=== PATIENT | female | born 1960 | race Caucasian/White ===

== ENCOUNTER → 2018-02-10 | Outpatient (CLI) | payer OTHER ==
--- NOTE | 2018-02-10 13:24 | RADIOLOGY REPORT (SQ) ---
EXAM DESCRIPTION: MRI LT LOWER JOINT WITHOUT COMPLETED DATE/TIME: 02/10/2018 12:49 pm REASON FOR STUDY: M25.562 PAIN IN LEFT KNEE M25.562 PAIN IN LEFT KNEE COMPARISON: Plain radiographs TECHNIQUE: Leftknee images acquired and stored on PACS. Multiplanar images include fat sensitive se quences as T1, water sensitive sequences as FST2 or STIR, cartilage sensitive sequences as FSPD, and gradient echo sequences. LIMITATIONS: None. FINDINGS: JOINT AND BURSAE: Joint effusion. No popliteal cyst. BONE CORTEX AND MARROW: No alteration of signal to suggest marrow replacement. No worrisome bone lesi ons. No occult fracture. ACL: Intact. No degeneration or ganglion cyst. PCL: Intact. MCL: Intact. No periligamentous edema or fluid. LCL: Intact. No periligamentous edema or fluid. MEDIAL MENISCUS: No tears. No abnormal signal. LATERAL MENISCUS: No tears. No abnormal signal. MEDIAL COMPARTMENT: Cartilage preserved. No bone bruises or reactive marrow edema. No osteophytes. LATERAL COMPARTMENT: Cartilage preserved. No bone bruises or reactive marrow edema. No osteophytes. 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 Trochlear cartilage intact. EXTENSOR MECHANISM: Intact. Quadriceps and patella tendons normal. SOFT TISSUES: Adjacent muscles and subcutaneous tissues normal. Normal flow void in popliteal artery and vein. OTHER: No other significant finding. IMPRESSION: Patellar chondromalacia with subchondral cysts. Joint effusion. TECHNICAL DOCUMENTATION: JOB ID: [id number] [employer]- All Rights Reserved Reading location - IP/workstation name: [email or web address]
== END ==
LOC: RAD 13:21
PROVIDERS: ATTEND Orthopaedic Surgery
DX: M25.562 Pain in left knee (principal); M22.42 Chondromalacia patellae, left knee; M25.462 Effusion, left knee

== ENCOUNTER 2018-04-09 06:58 | Day surgery (SDC) | payer OTHER ==
[2018-04-09] MEDS ORDERED: ONDANSETRON HCL INJ/PF 4 MG/2 ML SDV ONE (07:45)
[2018-04-09] MEDS ORDERED: DIPHENHYDRAMINE HCL 50 MG/ML VIAL ONE (07:45)
[2018-04-09] MEDS ORDERED: NALOXONE HCL INJ/PF 0.4 MG/1 ML SDV ONE (07:45)
[2018-04-09] MEDS ORDERED: FLUMAZENIL INJ 0.5 MG/5 ML VIAL ONE (07:46)
[2018-04-09] MEDS ORDERED: GLUCAGON,HUMAN RECOMB 1 MG INJ ONE (07:46)
[2018-04-09] MEDS ORDERED: EPINEPHRINE INJ 1 MG/10 ML DISP.SYRIN ONE (07:46)
[2018-04-09] MEDS: MIDAZOLAM 2 MG/2 ML INJ ONE ×6 (08:29→08:57)
[2018-04-09] MEDS: FENTANYL CITRATE INJ/PF 100 MCG/2 ML AMPUL ONE ×5 (08:31→09:00)
--- NOTE | 2018-04-09 09:08 | Discharge Summary ---
Discharge Summary (SDC) - Discharge Final Diagnosis: Personal history of colon polyp; incomplete colonoscopy Date of Surgery: 04/09/18 Discharge Date: 04/09/18 Condition: Good Treatment or Instructions: [place] [id number] POST ENDOSCOPY DISCHARGE INSTRUCTIONS 1. Diet: Start clear liquids that a regular diet as tolerated. 2. Resume all preoperative medications. All oral anticoagulants and aspirins can be resumed 24 hours after procedure. 3. If a polypectomy was performed some bleeding per rectum may occur. This should stop within 3 days. If not, please contact the office. 4. If you had a colonoscopy you may experience some bloating and delayed return of normal bowel function for several days, your regular bowel movement pattern should resume within a week. 5. Please contact [facility] at to make an appointment with Dr. Linares for 1 to 3 weeks following procedure. 6. If you have any questions or concerns regarding your care,treatment plan or follow up, please contact our office. 7. This was an incomplete colonoscopy; therefore we will either for the patient air-contrast barium enema, or repeat colonoscopy under LMAC anesthesia Referrals: NANIC MAN MD [Primary Care Provider] - Discharge Diet: As Tolerated Discharge Activity: Activity As Tolerated Home Care Assistance: None Needed Report the Following to Your Physician Immediately: Shortness of Breath, Increase in Pain, Fever over 101 Degrees
--- NOTE | 2018-04-09 09:11 | Operative Report ---
Operative Report DATE OF SURGERY: 04/09/18 PREOPERATIVE DIAGNOSIS: 1. Personal history of colon polyp POSTOPERATIVE DIAGNOSIS: Same; incomplete colonoscopy secondary to patient intolerance to procedure OPERATION: Colonoscopy to left colon SURGEON: MEREDITH KAUR ANESTHESIA: Moderate Sedation TISSUE REMOVED OR ALTERED: None COMPLICATIONS: None ESTIMATED BLOOD LOSS: None INTRAOPERATIVE FINDINGS: See below PROCEDURE: Obtaining informed consent the patient was taken from the preoperative holding area to the main endoscopy suite where monitoring devices were attached to the patient. Plan and surgical timeout were conducted The patient was placed in the left lateral decubitus position with knees to chest. A perianal examination was performed. There was no visible or palpable anorectal pathology. Sphincter tone was felt to be normal. The flexible adult colonoscope was advanced through the anal rectal canal around the sigmoid colon to the proximal left colon. Despite giving the patient 8 mg of Versed IV, and 200 mcg of fentanyl, with oxygen saturations in the low 90s despite 6 L of nasal cannula oxygen. The patient could not tolerate any further advancement of the scope. Difficulty seem to originate from the pelvis advancing the scope perhaps around a stiff sigmoid colon secondary to adhesions. The bowel prep was excellent. Unfortunately because the patient could not tolerate advancement of the scope due to her tolerance threshold, the scope was slowly withdrawn through the anal rectal canal. Complete visualization of the rectum was achieved with photodocumentation. The scope was withdrawn to the patient's anus. The patient tolerated the procedure well and was taken to the recovery area in stable condition. Because this is an incomplete colonoscopy, patient will require either an air- contrast barium enema or repeat colonoscopy with LMAC anesthesia in the operating room. This will be discussed with the patient.
[2018-04-09 10:29] VITALS: BP 106/73
== END 2018-04-09 10:25 | disposition home or self-care (01) ==
LOC: END 06:58
PROVIDERS: ATTEND Surgery
DX: Z12.11 Encounter for screening for malignant neoplasm of colon (principal); Z86.010 Personal history of colon polyps; F41.9 Anxiety disorder, unspecified; E07.9 Disorder of thyroid, unspecified; J45.909 Unspecified asthma, uncomplicated; Z87.19 Personal history of other diseases of the digestive system; Z88.2 Allergy status to sulfonamides; Z79.899 Other long term (current) drug therapy; Z91.040 Latex allergy status
CPT/HCPCS: 45378; J2250; J3010; J0171; J1200; J1610; J2310; J2405; J3490

== ENCOUNTER 2019-03-18 10:30 | Day surgery (SDC) | payer OTHER ==
[~2019-03-18 10:30] MED LIST: CHONDR SU A NA/HYALUR INTRAOC KIT (SURGICARE) ONE; EPINEPHRINE INJ/PF 1 MG/1 ML AMPULE ONE; KETOROLAC TROMETHAMINE 0.45% 4 DROP/0.4 ML DROPERETTE OS PRN; LIDOCAINE 1%/PHENYLEPHRINE 1.5% 1 ML VIAL ONE
[2019-03-18] MEDS: TETRACAINE HCL 0.5% OPH SOLN 4 ML OS PRN ×3 (11:04→11:54)
[2019-03-18] MEDS: CYCLOPENTOLATE 0.2%/PHENYLEPHRINE 1% OPH SOLN 2 ML OS PRN ×3 (11:05→11:30)
[2019-03-18] MEDS: TROPICAMIDE 1% OPH SOLN 3 ML OS PRN ×3 (11:05→11:30)
[2019-03-18] MEDS: BESIFLOXACIN HCL 0.6% OPH SUSP 5 ML BOTTLE OS PRN ×4 (11:05→12:22)
[2019-03-18] MEDS ORDERED: LIDOCAINE 2% INJ-PF (20 MG/ML) 10 ML AMPUL ONE (11:43)
[2019-03-18] MEDS ORDERED: FENTANYL CITRATE INJ/PF 100 MCG/2 ML AMPUL ONE (11:43)
[2019-03-18] MEDS ORDERED: ONDANSETRON HCL INJ/PF 4 MG/2 ML SDV ONE (11:43)
[2019-03-18] MEDS ORDERED: MIDAZOLAM 2 MG/2 ML INJ ONE (11:43)
[2019-03-18] MEDS: DORZOLAMIDE HCL 2%/TIMOLOL MALEAT 0.5% OPH SOLN 10 ML OS PRN ×2 (12:22)
[2019-03-18] MEDS ORDERED: DIPHENHYDRAMINE HCL 50 MG/ML VIAL ONE (13:15)
--- NOTE | 2019-03-18 19:34 | [facility] OPERATIVE REPORT E ---
[facility] Operative Report NAME: CHERYL ALLEN AGE: 58Y DATE OF SURGERY: 03/18/2019 ROOM: PREOPERATIVE DIAGNOSIS: CATARACT, LEFT EYE. POSTOPERATIVE DIAGNOSIS: CATARACT, LEFT EYE. OPERATION: Cataract extraction with insertion of a Symfony toric IOL of the left eye. SURGEON: JANELLE BERNARDO M.D. ANESTHESIA: Topical. PROCEDURE: After obtaining appropriate consent, the patient's left eye was prepped and draped in sterile fashion as well as the surgeon in a sterile manner and cataract surgery was started. First a paracentesis blade was used to make a side-port incision. Viscoelastic was used to inflate the anterior chamber. Next a 2.4 mm incision was made with a 2.4 mm blade, clear corneal temporally. A continuous capsulorrhexis was made using a cystotome and Utrata forceps. Following this hydrodissection was carried out to make the lens fully loose and mobile and it was rotated 45 degrees. Following this, a tcegcw-wvm-tcvgrct technique was used to phacoemulsify the lens with a CDE of 6.03. The remaining cortex was removed with irrigation/aspiration. Provisc was instilled into the capsular bag to inflate the bag. [id number], 17.0 diopter lens was placed at 45 degrees. The remaining viscoelastic material was removed with irrigation/aspiration. Following this, the incision was found to be watertight. Besivance was instilled into the eye and a protective shield was placed over the eye. The patient returned to the postoperative recovery in stable condition. DICTATING PHYSICIAN: JANELLE BERNARDO M.D. [id number] PHY#: [id number] ID: [id number] JOB#: [id number] ACCT: [id number] cc:JANELLE BERNARDO M.D. > [facility] HOSPITALVanna
--- NOTE | 2019-03-18 19:39 | [facility] DISCHARGE SUMMARY E ---
[facility] Discharge Summary NAME: CHERYL ALLEN AGE: 58Y ADMITTED: 03/18/2019 DISCHARGED: 03/18/2019 HOSPITAL COURSE: This is a 58-year-old female who underwent cataract extraction of the left eye with insertion of a Symfony toric IOL. DIAGNOSIS: CATARACT, LEFT EYE. She underwent surgery because she was having difficulty with depth perception and difficulty with glare from headlight. DISCHARGE INSTRUCTIONS: She should be on a regular diet. No bending at her waist, no heavy lifting. She should use her Besivance, Ilevro, and Durezol at 3 p.m. and 8 p.m. and sleep with a rigid shield. I will see her for @ 1 day postoperative tomorrow. DICTATING PHYSICIAN: JANELLE BERNARDO M.D. [id number] PHY#: [id number] ID: [id number] JOB#: [id number] ACCT: [id number] cc:JANELLE BERNARDO M.D. >
== END 2019-03-18 13:07 | disposition home or self-care (01) ==
LOC: SC 10:30
PROVIDERS: ATTEND Internal Medicine
DX: H25.13 Age-related nuclear cataract, bilateral (principal); E03.9 Hypothyroidism, unspecified; Z88.2 Allergy status to sulfonamides; Z79.899 Other long term (current) drug therapy; Z79.51 Long term (current) use of inhaled steroids
CPT/HCPCS: 66984; V2788; J2250; J3490 ×2; J1200; J0171; J3010; J2405; J2370

== ENCOUNTER 2019-04-01 09:04 | Day surgery (SDC) | payer OTHER ==
[~2019-04-01 09:04] MED LIST changes: +KETOROLAC TROMETHAMINE 0.45% 4 DROP/0.4 ML DROPERETTE OD PRN; -KETOROLAC TROMETHAMINE 0.45% 4 DROP/0.4 ML DROPERETTE OS PRN
[2019-04-01] MEDS: TROPICAMIDE 1% OPH SOLN 3 ML OD PRN ×3 (09:39→10:00)
[2019-04-01] MEDS: TETRACAINE HCL 0.5% OPH SOLN 4 ML OD PRN ×3 (09:39→10:06)
[2019-04-01] MEDS: CYCLOPENTOLATE 0.2%/PHENYLEPHRINE 1% OPH SOLN 2 ML OD PRN ×3 (09:40→10:00)
[2019-04-01] MEDS: BESIFLOXACIN HCL 0.6% OPH SUSP 5 ML BOTTLE OD PRN ×4 (09:40→10:34)
[2019-04-01] MEDS: DORZOLAMIDE HCL 2%/TIMOLOL MALEAT 0.5% OPH SOLN 10 ML OD PRN ×2 (10:34)
--- NOTE | 2019-04-01 20:50 | [facility] OPERATIVE REPORT E ---
[facility] Operative Report NAME: CHERYL ALLEN AGE: 58Y DATE OF SURGERY: 04/01/2019 ROOM: PREOPERATIVE DIAGNOSIS: CATARACT RIGHT EYE. POSTOPERATIVE DIAGNOSIS: CATARACT RIGHT EYE. OPERATION: Cataract extraction with intraocular lens implant of the right eye with a Symfony toric multifocal lens. SURGEON: JANELLE BERNARDO M.D. ANESTHESIA: Topical. COMPLICATIONS: None. ESTIMATED BLOOD LOSS: None. PROCEDURE: After appropriate consent was obtained and calculations made, the patient was brought back to the operating room where the patient was prepped and draped in sterile fashion. A lid speculum was placed and attention was directed to a paracentesis where a paracentesis blade made a small incision. Viscoelastic was then used to inflate the anterior chamber. Next a 2.4 mm incision was made with the paracentesis blade. A continuous capsulorhexis forceps of approximately 5 mm was done using a cystitome and capsulorhexis forceps. Hydrodissection was carried out to make the lens freely mobile and then a divide and conquer technique was used to remove the lens with a CDE of approximately 5.88. Following this, the remaining cortical material was removed with irrigation/aspiration. After this the patient was then again marked. The marking procedure started in the preoperative holding area where 180 and 0 was marked with a marker. Now that the patient was in the operating room a 360-degree marker was used to henna the axis at approximately 110 degrees and a toric lens of 16.5 diopters [id number] was injected into the bag after filling with viscoelastic and rotating into proper position. The I/A was used to remove the viscoelastic material and the toric lens appeared to be appropriately aligned. A 10-0 nylon suture was used to close the corneal incision and TobraDex was instilled into the eye and a pressure patch was placed with a protective shield. The patient returned to postoperative recovery in stable condition. DICTATING PHYSICIAN: JANELLE BERNARDO M.D. [id number] PHY#: [id number] ID: [id number] JOB#: [id number] ACCT: [id number] cc:JANELLE BERNARDO M.D. >
--- NOTE | 2019-04-01 20:50 | [facility] DISCHARGE SUMMARY E ---
[facility] Discharge Summary NAME: CHERYL ALLEN AGE: 58Y ADMITTED: 04/01/2019 DISCHARGED: The patient is a 58-year-old female who underwent cataract extraction right eye with insertion of a Symfony IOL. DIAGNOSIS: Cataract right eye. She underwent surgery because she was having difficulty reading small print. She should be on a regular diet. No bending at the waist and no heavy lifting. She should use her Besivance, Ilevro, and Durezol at 3:00 p.m. and 8:00 p.m. and sleep with a rigid shield. I will see her for her 1-day postop tomorrow. DICTATING PHYSICIAN: JANELLE BERNARDO M.D. [id number] PHY#: [id number] ID: [id number] JOB#: [id number] ACCT: [id number] cc:JANELLE BERNARDO M.D. > MTDD
== END 2019-04-01 11:15 | disposition home or self-care (01) ==
LOC: SC 09:04
PROVIDERS: ATTEND Internal Medicine
DX: H25.11 Age-related nuclear cataract, right eye (principal); Z96.1 Presence of intraocular lens; E07.9 Disorder of thyroid, unspecified; Z88.2 Allergy status to sulfonamides; Z91.040 Latex allergy status
CPT/HCPCS: 66984; 00142; V2788; J3490; J0171; J2370; 142

== ENCOUNTER → 2019-09-14 | Outpatient (CLI) | payer OTHER ==
--- NOTE | 2019-09-14 15:21 | RADIOLOGY REPORT (SQ) ---
EXAM DESCRIPTION: BARIUM SWALLOW ESOPHAGUS COMPLETED DATE/TIME: 09/14/2019 9:23 am REASON FOR STUDY: R13.10 DYSPHAGIA, UNSPECIFIED R13.10 DYSPHAGIA, UNSPECIFIED COMPARISON: None. TECHNIQUE: Under fluoroscopic guidance, patient ingested effervescent granules followed by thick and thin barium. Fluoroscopic spot images and routine radiographic images acquired and stored on PACS. 12 MM BARIUM TABLET GIVEN: Barium tablet passed easily through the esophagus and into the stomach wit hout delay. LIMITATIONS: None. FLUOROSCOPY TIME: FLUORO TIME: 2.51 minutes 6 images saved to PACS. FINDINGS: NEUROMUSCULAR COORDINATION OF SWALLOW: Normal. No aspiration. ESOPHAGEAL MOTILITY: Normal peristalsis. No esophageal spasm. ESOPHAGEAL MUCOSA: Normal mucosa without masses or ulceration. GASTRO-ESOPHAGEAL JUNCTION: Small hiatal hernia with Schatzki's ring present. No gastroesophageal re flux seen. NON-GI TRACT STRUCTURES: No significant finding. OTHER: No other significant finding. IMPRESSION: SMALL HIATAL HERNIA WITH SCHATZKI'S RING. OTHERWISE UNREMARKABLE STUDY. RECOMMENDATION: NONE COMMENT: NONE Quality ID [id number]: Final reports for procedures using fluoroscopy that document radiation exposure william archana, or exposure time and number of fluorographic images (if radiation exposure indices are not avail able) TECHNICAL DOCUMENTATION: JOB ID: [id number] 2003 [employer]- All Rights Reserved Reading location - IP/workstation name: [email or web address] [id number]
== END ==
LOC: RAD 08:39
PROVIDERS: ATTEND Internal Medicine Gastroenterology
DX: K22.2 Esophageal obstruction (principal); K44.9 Diaphragmatic hernia without obstruction or gangrene; R13.10 Dysphagia, unspecified
CPT/HCPCS: 74220